=== PATIENT | female | born 1975 | race Caucasian/White ===

== ENCOUNTER 2024-04-01 18:59 | Emergency (ER) | payer BC, SELFPAY ==
[2024-04-01 19:00] VITALS: BP 149/77; PULSE 82; RESP 15; TEMP 36.8; O2SAT 97
--- NOTE | 2024-04-01 19:26 | CT_ITS ---
EXAM: BRAIN/HEAD WITHOUT CONTRAST CLINICAL HISTORY: Injury COMPARISON: 04/01/2024 TECHNIQUE: Noncontrast images of the head with multiplanar reconstructions. Dose reduction techniques were used including intermediate exposure control (AEC),iterative reconstruction technique, and/or mA and/or KV dose adjustments based on patient's size. FINDINGS: No acute intracranial hemorrhage. No loss of vines-white differentiation.The ventricles and sulci are normal in appearance. The osseous structures are unremarkable. No soft tissue abnormality identified. The paranasal sinuses and mastoid air cells are clear. CT/Brain/Head without Contrast IMPRESSION: 1. No acute intracranial abnormality. Reading Location: [facility]
--- NOTE | 2024-04-01 19:26 | CT_ITS ---
PROCEDURE: SINUS/FACIAL BONE REASON FOR EXAM: Facial injury TECHNIQUE: CT of the facial bones without contrast COMPARISON: 04/01/2024 FINDINGS: No acute facial bone fracture. The paranasal sinuses and mastoid air cells are well aerated. There is trace mucosal thickening of the maxillary sinuses bilaterally. The soft tissues are unremarkable. CT/Sinus/Facial Bone IMPRESSION: 1. No acute facial bone fracture identified. Reading Location: [facility]
--- NOTE | 2024-04-01 19:43 | EDS_ITS ---
HPI <GEORGE Santana - Last Filed: 04/01/24 20:15> History of Present Illness Chief Complaint: Head Injury Narrative Narrative: Patient is a 48-year-old female with history of bipolar who presents to the [facility] apartment sustaining a head injury. 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 She was struck to the forehead. She denies any LOC however states whenever she did get struck by the ball she did become spacey. She fell like she could not hear. The incident happened approxi-11:30 AM. Per her friend over the last several hours, the patient was more spacey, had difficulty carry on conversation was not acting herself. They are here for evaluation. PFSH <GEORGE Santana - Last Filed: 04/01/24 20:15> PFS Home Medications ?Medication ?Instructions ?Recorded ?Last Taken ?Type ondansetron 4 mg disintegrating 4 mg PO Q8H PRN PRN Na usea #10 tabs 04/01/24 Unknown Rx tablet Allergy/AdvReac Type Severity Reaction Status Date / Time No Known Allergies Allergy Verified 04/01/24 19:00 ROS <GEORGE Santana - Last Filed: 04/01/24 20:15> ROS ED ROS Narrative Constitutional: Negative for fever, chills, weight loss, weakness Eyes: Negative for vision loss, vision change, double vision. Positive photophobia ENT: Negative for any sore throat, ear pain, congestion Cardiovascular: Negative for any chest pain, tightness, palpitations Respiratory: Negative for any cough, sputum production, hemoptysis, dyspnea, dyspnea on exertion, orthopnea Gastrointestinal: Negative for any abdominal pain, vomiting, diarrhea, constipation, blood in stool, blood in vomit. Positive for nausea : Negative for any urinary frequency, dysuria, retention, blood in urine Muscle skeletal: Negative for any neck pain, back pain Neurological: Negative for any syncope. Positive for headache, dizziness Skin: Negative for any rashes, itching, abrasions, lacerations Psychiatric: Negative for any depression, anxiety, stress, suicidal ideation, homicidal ideation Hematologic: Negative for any excessive bruising, easy bleeding EXAM <GEORGE Santana - Last Filed: 04/01/24 20:15> Physical Exam Narrative Exam Narrative: Vital signs reviewed. HEET: Head normocephalic atraumatic, TMs clear bilaterally. Posterior pharynx is clear, moist mucous membranes. Nares clear bilaterally. Pupils are equal round reactive to light. Negative for any hemotympanum, negative for any septal hematoma. Patient does have abrasions to the bridge of the nose, left lower orbit slight pain on palpation Neck: Supple with no lymphadenopathy or tenderness. No signs of meningismus. Cardiac: Regular rate and rhythm no murmurs gallops or rubs, equal peripheral pulses bilaterally. Respiratory: Lungs clear to auscultation bilaterally. No chest tenderness. Abdomen: Soft, nontender, nondistended. No abdominal bruit or pulsatile masses. No hepatosplenomegaly Extremities: No peripheral edema, no signs of gross trauma or deformity. Active full range of motion of all extremities. Neuro: Cranial nerves II through XII intact, no focal neurological deficits. Neuroexam was unremarkable, negative for nystagmus. No ataxia. Skin: Clean dry and intact with no rash, purpura, petechiae, vesicles or pustules. Backs/flank: No CVA tenderness, no midline spinal tenderness, no deformity. Psych: Normal mood and affect. No SI, HI or acute psychosis. Const Vital Signs: 04/01/24 19:00 Temperature 98.2 F Temperature Source Temporal Pulse Rate 82 Respiratory Rate 15 Blood Pressure 149/77 H Blood Pressure Mean 101 Pulse Ox 97 Oxygen Delivery Method Room Air <Dr. Etienne Cox DO - Last Filed: 04/01/24 20:10> Physical Exam Const Vital Signs: 04/01/24 19:00 Temperature 98.2 F Temperature Source Temporal Pulse Rate 82 Respiratory Rate 15 Blood Pressure 149/77 H Blood Pressure Mean 101 Pulse Ox 97 Oxygen Delivery Method Room Air [facility] <GEORGE Santana - Last Filed: 04/01/24 20:15> [facility] Radiography Diagnostic Testing: Clinical Impression(s) from Imaging Studies Brain CT 04/01/24 19:26 IMPRESSION: 1. No acute intracranial abnormality. [facility] Facial/Sinus 04/01/24 19:26 IMPRESSION: 1. No acute facial bone fracture identified. Reading Location: [facility] Treatment and Re-Evaluation :: Differential diagnosis includes however is not limited to: Concussion, skull fracture, intracranial bleeding, orbital bone fracture, nasal bone fracture, contusions Patient appears generally well, vital signs are stable, patient is nontoxic- appearing. Presenting to the emergency department after sustaining a head injury by a softball and not acting appropriately. Patient was able to answer questions appropriately however patient seemed to really think hard about certain questions. Per the patient's friend this is not like her. Secondary to the altered mental status, patient received a CT scan of the brain, maxillofacial bones. Oral Zofran will be given. All radiologic examinations were read, reviewed by the emergency department attending. From these reads, a plan of care will be put in place. Patient CT scan of the brain showed no acute intracranial abnormality. Patient CT scan of the facial sinus bones showed no acute facial bone fracture kalin ntified. On reevaluation of the patient was still alert, she was still somewhat spacey however she was alert and able to have a conversation. At this time, she would diagnosed with a concussion. She will given a prescription for Zofran and instructed take Tylenol [id number] ibuprofen. All questions were answered, patient stable for discharge. Patient return for worsening altered mental status, nausea or vomiting. <Dr. Etienne Cox, DO - Last Filed: 04/01/24 20:10> [facility] Narrative Medical decision making narrative: I have personally performed a face to face assessment of the patient and have reviewed the JEVON Note. I performed a substantive portion of the visit including all aspects of the following. My robles findings include: History: Patient presents with head injury that occurred today. Patient states she was catching a softball pitcher when the ball hit her in the face. Patient denies any loss of consciousness. Patient complains of pain in her head and face. Patient describes it as aching. Patient states it is worse with bright lights. Patient denies any paresthesias or weakness. Patient denies any other injuries. Exam: Vital signs are stable. Patient is afebrile. Patient is in no acute distress. Oral mucosa is pink and moist. Pupils are equal, round, and reactive to light bilaterally. Extraocular muscles are intact. There is no nystagmus noted. There is edema and ecchymosis across the bridge of the nose. There is no septal deviation or septal hematoma noted. Cranial nerves II through XII are intact. Strength is 5/5 bilateral in the upper and lower extremities. There are no sensory deficits noted. Heart was regular rate and rhythm. Lungs are clear and equal bilaterally. Abdomen is soft. Bowel sounds are normal. There is no tenderness. Medical Decision Making: Differential diagnosis includes nasal fracture, closed head injury, intracranial bleeding, and concussion. CT scan of the brain will be obtained to assess for intracranial bleeding. CT scan of the facial bones will be obtained to assess for nasal fracture. CT scan of the brain was obtained. There is no acute intracranial abnormality. This was interpreted by the radiologist and was also independently reviewed by myself. CT scan of the facial bones was obtained. There is no acute fracture noted. This was interpreted by the radiologist and was also independently reviewed by myself. Patient was advised of her findings. Patient was instructed to rest in a dark quiet room. Patient was instructed to drink plenty of fluids. Patient was instructed to take Tylenol or ibuprofen as needed for pain. Patient was instructed to limit her screen time to on phones, tablets, and televisions. Patient was instructed to follow-up with her primary care physician in 5 to 7 days. Patient understood and was agreeable with the plan. All questions were answered. Radiography Diagnostic Testing: Clinical Impression(s) from Imaging Studies Brain CT 04/01/24 19:26 IMPRESSION: 1. No acute intracranial abnormality. Reading Location: [facility] Facial/Sinus 04/01/24 19:26 IMPRESSION: 1. No acute facial bone fracture identified. Reading Location: [facility] Discharge Plan Triage Chief Complaint: Head Injury ED Midlevel Provider: Quintin Harrington ED Provider: Etienne Cox Dx/Rx/DC Orders Clinical Impression: Head injury, Contusion of face, Concussion Instructions: Coping with Concussion, After a Concussion, ED Concussion Prescriptions: New ondansetron 4 mg tablet,disintegrating 4 mg PO Q8H PRN PRN (Reason: Nausea) Qty: 10 0RF Stand Alone Forms: ED Work / School Excuse Primary Care Provider: Bisi Hutchinson Referrals: [place],Bisi, MD [Primary Care Provider] - Activity Restrictions/Additional Instructions: Please use [id number] ibuprofen and Tylenol. You need to rest for the next 24 to 48 hours. This means minimal time on your phone, computers. Nausea medicine as needed. If you develop worsening uncontrolled head pain, nausea or vomiting, please return. Print Language: Danish Disposition Disposition: Home, Self Care
[2024-04-01] MEDS: Ibuprofen 600 MG Tablet PO (20:17)
[2024-04-01] MEDS: Ondansetron ODT 4 MG Tablet PO (20:17)
[2024-04-01 20:20] VITALS: BMI 28.4
== END 2024-04-01 20:33 | disposition home or self-care (01) ==
PROVIDERS: Emergency Provider Emergency Medicine; PCP Internal Medicine; Visit Provider Emergency Medicine
DX: S06.0X0A Concussion without loss of consciousness, initial encounter (principal); Y93.64 Activity, baseball; W21.07XA Struck by softball, initial encounter; S00.83XA Contusion of other part of head, initial encounter
CPT/HCPCS: 70450; 70486; 99282

== ENCOUNTER → 2024-04-06 | Outpatient (CLI) | payer BC, MEDICAID, SELFPAY ==
--- NOTE | 2024-04-06 13:55 | CT_ITS ---
EXAM: CT BRAIN WITHOUT CONTRAST CLINICAL HISTORY: HIT IN LEFT EYE WITH SOFTBALL ON WEDNESDAY. BRUISING AND SWELLING. INCONTINENCE. MEMORY LOSS. PHOTOSENSITIVITY. POSSIBLE CONCUSSION. COMPARISON: CT BRAIN DATED 04/01/2024. TECHNIQUE: Contiguous axial scans of 3.75 mm slice thicknesses with sagittal and coronal reconstruction images. One or more dose reduction techniques were utilized (e.g., automated exposure control, adjustment of mA and/or kv according to patient size, use of iterative reconstruction technique). FINDINGS: No intraparenchymal hemorrhage. No abnormal areas of encephalomalacia. No mass effect or midline shift. Hernandez-white matter differentiation is normal. Ventricles and cisterns are appropriate size for patient's age. No extra-axial fluid collections. Cerebellum and posterior fossa unremarkable. Paranasal sinuses normal. Mastoid air cells are normal. Calvarium unremarkable. Soft tissues unremarkable. CT/Brain/Head without Contrast IMPRESSION: No acute intracranial abnormalities are demonstrated. Reading Location: [facility]
== END | disposition home or self-care (01) ==
PROVIDERS: PCP Internal Medicine; Referring Provider Family Medicine; Visit Provider Family Medicine
DX: S06.0XAA Concussion with loss of consciousness status unknown, initial encounter (principal)
CPT/HCPCS: 70450